=== PATIENT | male | born 1970 | race Caucasian/White ===

== ENCOUNTER → 2020-09-05 | Outpatient (CLI) | payer BC, OTHER ==
[~2020-09-05] MED LIST: HYDR-1231 PO; ONDA-42 SL
--- NOTE | 2020-09-05 12:09 | Diagnostic Imaging Report ---
EXAMINATION: Supine abdomen at 10:30 AM. INDICATION: Left flank pain. FINDINGS: The prior abdomen exam of 09/03/2014 noted a delayed nephrogram on the right. This was felt to be related to a small calculus at the ureterovesical junction. On this exam, there is no clear evidence for a calculus overlying the bony pelvis that would suggest a ureteral stone. There is no sign of a calculus overlying either renal contour either. There is some gas in both the large and small bowel in a nonspecific fashion. There is no evidence for a bowel obstruction. There is no mass or organomegaly identified. The surgical clips overlying the right lower quadrant seen previously are again visualized and no different. Perhaps the patient has had a prior appendectomy. The osseous structures are intact. IMPRESSION: 1. There is no evidence for a calculus overlying the kidneys or along the expected paths of the ureters. If clinical concern regarding obstruction of either collecting system persists, however, then CT would be recommended for further study. 2. There is no acute abnormality of the abdomen or pelvis noted otherwise. Dictated by: Dictated on workstation # [id number]
== END ==
LOC: RAD 10:09
PROVIDERS: ATTEND Nurse Practitioner Family
DX: R10.9 Unspecified abdominal pain (principal)
CPT/HCPCS: 74018

== ENCOUNTER → 2020-09-07 | Outpatient (CLI) | payer OTHER ==
[~2020-09-07] MED LIST changes: +CATHETER FLUSH 10 ML SYR IV PRN; +HOLD METFORMIN - RECEIVED CONTRAST 20 ML VIAL IV SCH; +IOHEXOL 350 MG/ML 100 ML (OMNIPAQUE 350) VIAL IV ONE; +NS 100 ML (IVPB) BAG IV ONE
--- NOTE | 2020-09-07 10:26 | Diagnostic Imaging Report ---
PROCEDURE: CT abdomen and pelvis with contrast. TECHNIQUE: Multiple contiguous axial images were obtained through the abdomen and pelvis after administration of intravenous contrast. Auto Exposure Controls were utilized during the CT exam to meet ALARA standards for radiation dose reduction. All CT scans use one or more of the following dose optimizing techniques: automated exposure control, MA and/or KvP adjustment based on patient size and exam type or iterative reconstruction. INDICATION: Left flank pain radiating anteriorly. Correlation is made prior CT from 09/03/2014. The lung bases are clear. The liver and gallbladder are unremarkable. No biliary ductal dilatation is seen. Pancreas and spleen are unremarkable. No adrenal mass is identified. Kidneys are unremarkable. Aorta is nonaneurysmal. No definite bladder, ureteral or renal calculi are seen. There is no hydronephrosis. Small and large bowel loops appear to be normal in caliber. There is no obstruction. There are surgical clips in right lower quadrant, perhaps from prior appendectomy. There is no free fluid or fluid collection identified. Prostate is unremarkable. IMPRESSION: Unremarkable CT of the abdomen and pelvis. No acute features detected. Dictated by: Dictated on workstation # [id number]
== END ==
LOC: RAD 08:45
PROVIDERS: ATTEND Nurse Practitioner Family
DX: R31.9 Hematuria, unspecified (principal); R10.32 Left lower quadrant pain; R10.12 Left upper quadrant pain; Z98.890 Other specified postprocedural states
CPT/HCPCS: 74177